=== PATIENT | female | born 1960 | race Caucasian/White ===

== ENCOUNTER 2016-07-29 16:25 | Emergency (ER) | payer BC, OTHER ==
[~2016-07-29] VITALS: Ht 165.1 cm; Wt 112.6 kg
[2016-07-29 16:37] VITALS: TEMP 36.8; Ht 165.1 cm; Wt 112.6 kg
[2016-07-29] MEDS ORDERED: DEXAMETHASONE SOD INJ 10 MG/ML VIAL IV STA (16:55)
[2016-07-29] MEDS ORDERED: DiphenhydrAMINE HCL 50 MG/ML VIAL IV STA (16:55)
[2016-07-29] MEDS ORDERED: FAMOTIDINE 20MG/102 ML D5W IV STA (16:55)
[2016-07-29] MEDS ORDERED: IBUP-103 PO (17:30)
[2016-07-29] MEDS ORDERED: BUPR-83 PO (17:30)
--- NOTE | 2016-07-29 18:02 | EMERGENCY ROOM VISIT NOTE ---
History Report prepared by Herb: Alba Dhillon Under the Supervision of: Dr. Valentín Fisher M.D. First contact with patient: 16:46 Chief Complaint: ALLERGIC REACTION Stated Complaint: SWELLING ALL OVER AND ITCHY FROM LATEX CONTACT- History of Present Illness The patient is a 56 year old female who presents to the Emergency Room with complaints of a constant allergic reaction beginning 4 days ago. The patient states that she has a history of a latex allergy and in the past has had itchiness across her hands after wearing latex gloves. 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 Since wearing the gloves she has had swelling of the upper and lower extremities and itchiness. She denies any fever, chills, bowel changes, and shortness of breath. The patient notes that she took Benadryl and an over the counter medication that she does not remember the name of without relief of her symptoms. Source of History: patient Onset: 4 days ago Position: other (allergic reaction) Quality: other (itchiness) Timing: constant Associated Symptoms: No SOB, No chills, No fevers Note: Pt complains of upper and lower extremity swelling, hives, and itchiness. She denies any bowel changes. Review of Systems See HPI for pertinent positives & negatives. A total of 10 systems reviewed and were otherwise negative. Past Medical & Surgical Medical Problems: (1) No known health problems Family History Cancer Social History Smoking Status: Current Every Day Smoker Marital Status: single Occupation Status: employed Current/Historical Medications Scheduled Bupropion (Wellbutrin), 100 MG PO QAM Methylprednisolone (Medrol Dosepak), 1 PKT PO UD Scheduled PRN Ibuprofen Tab (Advil), 200-600 MG PO Q4H PRN for Pain Allergies Coded Allergies: Latex (Verified Allergy, Intermediate, RASH, 07/29/16) Physical Exam Vital Signs Date Time Temp Pulse Resp B/P Pulse Ox O2 Delivery O2 Flow Rate FiO2 07/29/16 19:13 75 18 152/77 95 Room Air 07/29/16 18:27 80 16 117/92 96 Room Air 07/29/16 17:20 77 24 171/99 97 Room Air 07/29/16 17:14 79 07/29/16 16:42 98 Room Air 07/29/16 16:37 36.8 89 24 199/97 96 Room Air Physical Exam GENERAL: Patient is well appearing and in no acute distress. HEENT: No acute trauma, normocephalic atraumatic, mucous membranes moist, no nasal congestion, no scleral icterus. Mild swelling of lower lip, no tongue swelling. NECK: No stridor, no adenopathy, no meningismus, trachea is midline. LUNGS: No dyspnea. Clear to auscultation and equal bilaterally. No wheeze, no rhonchi. HEART: Regular rate and rhythm. No murmurs, rubs, gallops appreciated. ABDOMEN: Soft, nontender, bowel sounds positive, no masses appreciated, no peritonitis. BACK: No midline tenderness, no CVA tenderness EXTREMITIES: Normal motion all extremities, no cyanosis, no edema. NEUROLOGIC: Alert and oriented, no acute motor or sensory deficits, no focal weakness, cranial nerves grossly intact. SKIN: No rash, no jaundice, no diaphoresis. Erythema of arms and chest Medical Decision & Procedures Medications Administered Medications (Trade) Dose Ordered Sig/Mercedes Route Start Time Stop Time Status Last Admin Dose Admin Diphenhydramine HCl (Benadryl Inj) 50 mg NOW STAT IV 07/29/16 16:55 07/29/16 16:58 DC 07/29/16 17:17 50 MG Dexamethasone Sodium Phosphate (Decadron Inj) 10 mg NOW STAT IV 07/29/16 16:55 07/29/16 16:58 DC 07/29/16 17:05 10 MG Famotidine (Pepcid 20mg/100 ml) 20 mg ONE STAT IV 07/29/16 16:55 07/29/16 16:58 DC 07/29/16 17:05 20 MG ED Course 1645: The patient was evaluated in room A11. A complete history and physical exam was performed. 1654: Famotidine 20mg IV, Decadron Inj 10mg IV, Benadryl Inj 50mg IV. 1800: I reevaluated the patient. She is feeling much better and is drinking a Mountain Dew. She is not tired or somnolent in any way. 1847: Reevaluated the patient. Discussed results and discharge instructions: She verbalized understanding and agreement. The patient is ready for discharge. Medical Decision Differential: Allergic Reaction, Urticaria, Anaphylaxis, Arroyo-Joseph Syndrome, Toxic Epidermal Necrolysis, Erythema Multiforme, Cellulitis, amongst other etiologies entertained. 56 yr old female arrives with complaint of allergic reaction. Exposure to latex a few days ago and since with gradually worsening allergic reaction. She has allergic rash along with mild swelling of lower lip. Symptoms vastly improved with dec/pep/benadryl/nss. Consistent with allergic reaction. Feeling well. Several hours post treatment awake, alert, oriented and in no distress breathing comfortably. She was given benadryl initially, though with how awake she is I feel she is allowed to drive home with understanding benadryl can cause somnolence. RTED if worsening or other concerns. Consults Time Called: 1718 Consulting Physician: Dr. Villanueva Returned Call: 1720 Discussed the patient's case. Additional Consults: Time Called: 1723 Consulted Physician: Dr. Silva Returned Call: 1739 Additional Comments: Discussed the patient's case with Dr. Silva. The patient will be evaluated for further treatment and disposition. Impression Primary Impression: Allergic reaction Additional Impression: Latex allergy Scribe Attestation The scribe's documentation has been prepared under my direction and personally reviewed by me in its entirety. I confirm that the note above accurately reflects all work, treatment, procedures, and medical decision making performed by me. Departure Information Dispostion Home / Self-Care Prescriptions Methylprednisolone (MEDROL DOSEPAK) 4 Mg Demetrio 1 PKT PO UD for 6 Days, #1 PKT Prov: John Alonzo MD 07/29/16 Referrals Anil Bowen M.D. (PCP) Forms HOME CARE DOCUMENTATION FORM, IMPORTANT VISIT INFORMATION Patient Instructions My [facility] Additional Instructions - Use caution with driving as Benadryl may cause somnolense - Use Medrol dose pack as instructed - If symptoms worsen and you begin to become short of breath, have difficulty breathing, or any other concerning symptoms please return to the hospital or be seen by a doctor Problem Qualifiers Primary Impression: Allergic reaction Encounter type: initial encounter Qualified Codes: T78.40XA - Allergy, unspecified, initial encounter
[2016-07-29] MEDS ORDERED: METHYLPREDNISOLONE 4MG TAB, 6 DAY TAPER PO SCH (18:45)
[2016-07-29] MEDS ORDERED: METH4PAK PO (18:48)
--- NOTE | 2016-07-29 18:49 | EMERGENCY ROOM VISIT NOTE ---
History First contact with patient: 16:46 Chief Complaint: ALLERGIC REACTION Stated Complaint: SWELLING ALL OVER AND ITCHY FROM LATEX CONTACT- History of Present Illness The patient is a 56 year old female who presents to the Emergency Room with complaints of pruritis and swelling gradually worsening since the weekend. 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 She did try taking Benadryl yesterday but her swelling and itching have continuously worsened. She has had worsening itching that has become constant interfering with sleep. She has also noticed worsening swelling in her arms, legs, and neck. She denies any shortness of breath, wheezing, lightheadedness, or rash. Review of Systems See HPI for pertinent positives and negatives. A total of ten systems were reviewed and were otherwise negative. Past Medical/Surgical History Medical Problems: (1) No known health problems Family History Cancer Social History Smoking Status: Current Every Day Smoker Marital Status: single Occupation Status: employed Current/Historical Medications Scheduled Bupropion (Wellbutrin), 100 MG PO QAM Methylprednisolone (Medrol Dosepak), 1 PKT PO UD Scheduled PRN Ibuprofen Tab (Advil), 200-600 MG PO Q4H PRN for Pain Allergies Coded Allergies: Latex (Verified Allergy, Intermediate, RASH, 07/29/16) Physical Exam Vital Signs Date Time Temp Pulse Resp B/P Pulse Ox O2 Delivery O2 Flow Rate FiO2 07/29/16 18:27 80 16 117/92 96 Room Air 07/29/16 17:20 77 24 171/99 97 Room Air 07/29/16 17:14 79 07/29/16 16:42 98 Room Air 07/29/16 16:37 36.8 89 24 199/97 96 Room Air Physical Exam GENERAL: Awake, alert, mild distress HENT: Normocephalic, atraumatic. Oropharynx unremarkable. EYES: Normal conjunctiva. Sclera non-icteric. NECK: Supple. Trachea Midline RESPIRATORY: Clear to auscultation. Good inspiratory effort. No wheezing, rales , or rhonchi. CARDIAC: Regular rate, normal rhythm. Extremities warm and well perfused. Pulses equal. ABDOMEN: Soft, non-distended. No tenderness to palpation. RECTAL: Deferred. MUSCULOSKELETAL: Chest examination reveals no tenderness. The back is symmetrical on inspection without obvious abnormality. No joint edema. LOWER EXTREMITIES: Calves appear swollen, equal size bilaterally, nontender to palpation, nonpitting NEURO: Normal sensorium. No sensory or motor deficits noted. SKIN: No rash or jaundice noted. Medical Decision & Procedures Medications Administered Medications (Trade) Dose Ordered Sig/Mercedes Route Start Time Stop Time Status Last Admin Dose Admin Diphenhydramine HCl (Benadryl Inj) 50 mg NOW STAT IV 07/29/16 16:55 07/29/16 16:58 DC 07/29/16 17:17 50 MG Dexamethasone Sodium Phosphate (Decadron Inj) 10 mg NOW STAT IV 07/29/16 16:55 07/29/16 16:58 DC 07/29/16 17:05 10 MG Famotidine (Pepcid 20mg/100 ml) 20 mg ONE STAT IV 07/29/16 16:55 07/29/16 16:58 DC 07/29/16 17:05 20 MG Medical Decision Allergic Reaction to Latex - Benadryl - Decadron - Pepcid Impression Primary Impression: Allergic reaction Departure Information Dispostion Home / Self-Care Condition GOOD Prescriptions Methylprednisolone (MEDROL DOSEPAK) 4 Mg Demetrio 1 PKT PO UD for 6 Days, #1 PKT Prov: John Alonzo MD 07/29/16 Referrals Anil Bowen M.D. (PCP) Patient Instructions My [facility] Problem Qualifiers Primary Impression: Allergic reaction Encounter type: initial encounter Qualified Codes: T78.40XA - Allergy, unspecified, initial encounter
[2016-07-29 19:13] VITALS: BP 152/77; PULSE 75; O2SAT 95
== END 2016-07-29 19:18 | disposition home or self-care (01) ==
LOC: C.EDB 16:27 → C.EDA 19:18
DX: T78.40XA Allergy, unspecified, initial encounter (principal); X58.XXXA Exposure to other specified factors, initial encounter; Z91.040 Latex allergy status; F17.200 Nicotine dependence, unspecified, uncomplicated

== ENCOUNTER 2022-07-22 11:24 | Inpatient (IN) ==
--- NOTE | 2022-07-22 12:02 | XRay Report ---
SINGLE VIEW CHEST CLINICAL HISTORY: Atypical chest pain. FINDINGS: An AP, portable, upright chest radiograph is compared to study dated 07/16/2022. Correlation is made with abdominal CT dated 07/18/2021 The cardiomediastinal silhouette is unremarkable. There is no lobar consolidation or pleural effusion. Interstitial thickening and mild nodularity is again see n in the lower lobes. This likely evidence of mild pneumonitis which could be chronic. No pleural eff usion or pneumothorax is seen. The bony thorax is grossly intact. IMPRESSION: Interstitial thickening and mild nodularity in the lower lobes is similar to recent prior studies and there is also seen on a 07/18/[address] This likely represents a mild pneumoniti s which may be chronic. Nonemergent pulmonology follow-up is recommended ACT 112: Negative or not required by law. Electronically signed by: Kenny Chew M.D. 07/22/2022 12:01 PM
[2022-07-22 12:17] LABS: Basophils # (auto) 0.03 K/uL (0-0.2); Basophils % (auto) 0.3 %; Eosinophils # (auto) 0.08 K/uL (0-0.50); Eosinophils % (auto) 0.8 %; Hematocrit (blood only) 48.5 % (37.0-47.0); Hemoglobin 15.7 g/dl (12.0-16.0); Immature Granulocytes # (auto) 0.03 K/uL (0.01-0.20); Immature Granulocytes % (auto) 0.3 %; Lymphocytes % (auto) 23.1 %; Mean Corpuscular Hemoglobin 28.9 pg (25.0-34.0); Mean Corpuscular Hgb Conc 32.4 g/dL (32.0-36.0); Mean Corpuscular Volume 89.2 fL (80.0-100.0); Mean Platelet Volume 12.2 fL (9.4-12.4); Monocytes # (auto) 0.55 K/uL (0.11-0.59); Monocytes % (auto) 5.5 %; Neutrophils # (auto) 6.95 K/uL (1.40-6.50); Platelet Count 225 K/uL (130-400); RDW Standard Deviation 45.3 fL (36.4-46.3); Red Blood Count 5.44 M/uL (4.20-5.40); White Blood Count 9.94 K/ul (4.8-10.8)
[2022-07-22 12:34] LABS: Albumin Globulin Ratio 1.2 (0.9-2); BUN Creatinine Ratio 9.3 (10-20); Bilirubin,Total 0.5 mg/dl (0.2-1.0); Est GFR (African American) 99.7 ml/min; Globulin 3.4 gm/dl (2.5-4.0); Potassium 3.5 mmol/L (3.5-5.1); Total Protein 7.4 gm/dl (6.0-8.3)
[2022-07-22 12:39] LABS: Partial Thromboplastin Time 29.1 Seconds (21.0-31.0); Prothrombin Time 11.4 Seconds (9.0-12.0)
[2022-07-22 12:58] LABS: Troponin I High Sensitivity 19.5 pg/ml (0-14)
--- NOTE | 2022-07-22 15:04 | Emergency Department Note ---
Impression & Plan Dyspnea, Tobacco abuse, COPD exacerbation, Hypoxia ED Provider Note ED Provider Note NAME: PAPITO REECE AGE:62 SEX: Female : 1960 ARRIVES VIA: Private vehicle INFORMANT: Patient ED PROVIDER(s): Vickie Padilla DO CHIEF COMPLAINT: Shortness of breath, sent from PCP HPI: This is a 62-year-old female who presents emergency department due to difficulty breathing that began on Tuesday. Patient denies any known sick contacts. Patient states she began noticing difficulty breathing particular worse with exertion or lying flat. She denies any coming chest pain or pressure. Patient denies noting any change in her cough or sputum production, no hemoptysis. Patient states she does not use any MDIs or nebulizer treatments at home and is still smoking. She states she was previously told she had mild COPD. She denies any cardiac history or recent travel. Denies any coming leg swelling. She states no recent fevers, chills, sore throat, or nasal congestion. Patient was in her PCPs office today as a follow-up visit from another ER visit last week and was found in the office to be hypoxic and was referred to the ER for additional evaluation. PAST MEDICAL HISTORY:See Below PAST SURGICAL HISTORY:See Below FAMILY HISTORY:See Below SOCIAL HISTORY:See Below HOME MEDICATIONS:See Below ALLERGIES:See Below VITALS:See Below PHYSICAL EXAMINATION: GENERAL: alert, well appearing, well nourished, mild distress, non-toxic EYE EXAM: normal conjunctiva, PERRL and EOM's grossly intact OROPHARYNX: no exudate, no erythema, lips, buccal mucosa, and tongue normal and mucous membranes are moist NECK: supple, no nuchal rigidity, no adenopathy, non-tender LUNGS: Decreased bilateral to auscultation. Normal chest wall mechanics, no r/r, no retractions, scattered expiratory wheeze HEART: no murmurs, S1 normal and S2 normal ABDOMEN: abdomen soft, non-tender, normo-active bowel sounds, no masses, no rebound or guarding. BACK: Back is symmetrical on inspection and there is no deformity, no midline tenderness, no CVA tenderness. SKIN: no rashes, petechiae, orbruising UPPER EXTREMITIES: upper extremities are grossly normal. FROM, nml pulses b/l. LOWER EXTREMITIES: No pitting edema. FROM, nml pulses b/l. NEURO EXAM: Normal sensorium, cranial nerves II-XII grossly intact, normal spee ch, no facial droop,nogross weakness of arms, no gross weakness of legs. Gross sensation intact. No ataxia. Vital Signs: reviewed and remarkable Differential Diagnosis: Differential diagnoses includes but is not limited to pneumonia, bronchitis, COPD/Asthma exacerbation, pneumothorax, pulmonary embolism, congestive heart failure, acute coronary syndrome MEDICAL DECISION MAKING: This is a 62-year-old female with a history of COPD who presents to the emergency room after being seen by her PCP in follow-up for another visit and due to concern for increased trouble breathing and hypoxia noted in the office she was referred to the emergency department. Patient initially seen in the triage waiting room area as she presented on day of high volume and acuity. Labs drawn and sent, IV established, EKG and chest x-ray performed and interpreted by me. Once placed in a regular patient room patient was connected to telemetry for monitoring. Patient given DuoNeb treatments with minimal improvement. Patient continued to have intermittent episodes of hypoxia and was placed on oxygen via nasal cannula. While chest x-ray did not show any focal infiltrate, due to her hypoxia and prior history she was sent for CT imaging additionally. This was reassuring, no PE was noted. Case discussed with hospitalist for additional evaluation and management. Patient was given Solu- Medrol and started on doxycycline while in the emergency room. Consultation(s): 1630: [facility] ER Treatment Provided: See below Diagnostics Interpreted By Me: -ECG: Normal sinus at 74, normal axis, normal intervals, no acute ST/T wave changes -Cardiac Monitoring: An order was placed for continuous cardiac monitoring. The monitor shows a rate of 70 with normal sinus rhythm. -Laboratory studies: As stated above and show below. -Imaging studies: X-ray Chest: A single view study of the chest was reviewed and was negative for cardiomegaly, focal infiltrate, effusion, pulmonary edema, or wide mediastinum. Triage Nursing Note Reviewed Prior/Outside Records Reviewed Past Med/Surg History Medical History COPD (chronic obstructive pulmonary disease) Depression with anxiety HLD (hyperlipidemia) Hypertension Tobacco abuse Surgical History History of hysteroscopy Hx of colonoscopy Family History Mother Cancer Hypertension Social History (Updated 07/22/22 @ 17:26 by Simi Wing PA-C) Smoking Status: Current every day smoker Tobacco Type: Cigarettes Age Started Using Tobacco: 18; packs per day: 0.5; Cigarettes Per Day: 10; Second Hand Exposure: Yes; Do You Dip or Chew Tobacco: No; Tobacco Cessation Education Requested by Patient: No Hx Alcohol Use: No Hx Substance Use: No Preferred Language: Japanese Communication Ability: Effective Net Ui Developer Required: No Beliefs That Will Affect Care: None Current Living Situation: Alone Other Information That Helps Us Care for You: No Feels Safe at Home: Yes Safety Concerns: Feels Safe At This Time Assistive Devices: None Allergies Allergies Allergy/AdvReac Type Severity Reaction Status Date / Time latex Allergy Intermediate RASH Verified 07/22/22 15:29 Home Meds Home Medications Medication Instructions Recorded Confirmed amlodipine 5 mg tablet 5 mg PO QAM 09/11/20 07/22/22 escitalopram oxalate 10 mg tablet 10 mg PO QA 07/22/22 07/22/22 Results & Data (ED) Vital Signs Vital Signs - 24 hr 07/22/22 11:26 Temperature 36.5 C Temperature Source Temporal Artery Scan Pulse Rate 84 Pulse Rhythm Regular Pulse Strength Normal Respiratory Rate 22 Respiratory Effort / Characteristics Non-Labored Spontaneous Respiratory Depth Normal Respiratory Pattern Regular Blood Pressure 168/84 H Blood Pressure Mean 112 Blood Pressure Position Sitting Pulse Oximetry 92 Oxygen Delivery Method Room Air Sepsis Recent Fever Within 48 Hours No Sepsis New/Unexplained Change in Mental Status No Sepsis Action Taken by Nursing No Action Required Laboratory Data 07/22/22 11:41 07/22/22 11:41 Lab Results 07/22/22 07/22/22 07/22/22 Range/Units 11:41 11:41 11:41 WBC 9.94 (4.8-10.8) K/ul RBC 5.44 H (4.20-5.40) M/uL Hgb 15.7 (12.0-16.0) g/dl Hct 48.5 H (37.0-47.0) % MCV 89.2 (80.0-100.0) fL MCH 28.9 (25.0-34.0) pg MCHC 32.4 (32.0-36.0) g/dL RDW Std Deviation 45.3 (36.4-46.3) fL RDW Coeff of Pavithra 14.0 (11.5-14.5) % Plt Count 225 (130-400) K/uL MPV 12.2 (9.4-12.4) fL Immature Gran % (Auto) 0.3 % Neut % (Auto) 70.0 % Lymph % (Auto) 23.1 % [place] % (Auto) 5.5 % Eos % (Auto) 0.8 % Baso % (Auto) 0.3 % Neut # (Auto) 6.95 H (1.40-6.50) K/uL Lymph # (Auto) 2.30 (1.2-3.4) K/uL [place] # (Auto) 0.55 (0.11-0.59) K/uL Eos # (Auto) 0.08 (0-0.50) K/uL Baso # (Auto) 0.03 (0-0.2) K/uL Immature Gran # (Auto) 0.03 (0.01-0.20) K/uL PT 11.4 (9.0-12.0) Seconds INR 1.0 (0.9-1.1) APTT 29.1 (21.0-31.0) Seconds PTT Ratio 1.0 Sodium 139 (136-145) mmol/L Potassium 3.5 (3.5-5.1) mmol/L Chloride 99 (98-107) mmol/L Carbon Dioxide 34 H (21-32) mmol/L Anion Gap 6 (3-11) BUN 7 (6-23) mg/dl Creatinine 0.75 (0.6-1.2) mg/dl Est Cr Clr Drug Dosing 97.0 ml/min Est GFR ( Amer) 99.7 ml/min Est GFR (Non-Af Amer) 86.0 ml/min BUN/Creatinine Ratio 9.3 L (10-20) Glucose 113 H (70-99(Fasting)) mg/dl Calcium 9.0 (8.6-10.3) mg/dl Total Bilirubin 0.5 (0.2-1.0) mg/dl AST 18 (13-39) U/L ALT 21 (7-52) U/L Alkaline Phosphatase 90 (34-104) U/L Troponin I High Sens 19.5 H (0-14) pg/ml Total Protein 7.4 (6.0-8.3) gm/dl Albumin 4.0 (3.4-5.0) gm/dl Globulin 3.4 (2.5-4.0) gm/dl Albumin/Globulin Ratio 1.2 (0.9-2) Procalcitonin (0-0.5) ng/ml SARS-CoV-2 (PCR) (Negative) Influenza Type A (PCR) (Neg) Influenza Type B (PCR) (Neg) RSV (RT-PCR) (Neg) 07/22/22 07/22/22 07/22/22 Range/Units 11:41 15:21 16:27 WBC (4.8-10.8) K/ul RBC (4.20-5.40) M/uL Hgb (12.0-16.0) g/dl Hct (37.0-47.0) % MCV (80.0-100.0) fL MCH (25.0-34.0) pg MCHC (32.0-36.0) g/dL RDW Std Deviation (36.4-46.3) fL RDW Coeff of Pavithra (11.5-14.5) % Plt Count (130-400) K/uL MPV (9.4-12.4) fL Immature Gran % (Auto) % Neut % (Auto) % Lymph % (Auto) % [place] % (Auto) % Eos % (Auto) % Baso % (Auto) % Neut # (Auto) (1.40-6.50) K/uL Lymph # (Auto) (1.2-3.4) K/uL [place] # (Auto) (0.11-0.59) K/uL Eos # (Auto) (0-0.50) K/uL Baso # (Auto) (0-0.2) K/uL Immature Gran # (Auto) (0.01-0.20) K/uL PT (9.0-12.0) Seconds INR (0.9-1.1) APTT (21.0-31.0) Seconds PTT Ratio Sodium (136-145) mmol/L Potassium (3.5-5.1) mmol/L Chloride (98-107) mmol/L Carbon Dioxide (21-32) mmol/L Anion Gap (3-11) BUN (6-23) mg/dl Creatinine (0.6-1.2) mg/dl Est Cr Clr Drug Dosing ml/min Est GFR ( Amer) ml/min Est GFR (Non-Af Amer) ml/min BUN/Creatinine Ratio (10-20) Glucose (70-99(Fasting)) mg/dl Calcium (8.6-10.3) mg/dl Total Bilirubin (0.2-1.0) mg/dl AST (13-39) U/L ALT (7-52) U/L Alkaline Phosphatase (34-104) U/L Troponin I High Sens 20.2 H (0-14) pg/ml Total Protein (6.0-8.3) gm/dl Albumin (3.4-5.0) gm/dl Globulin (2.5-4.0) gm/dl Albumin/Globulin Ratio (0.9-2) Procalcitonin 0.09 (0-0.5) ng/ml SARS-CoV-2 (PCR) NEGATIVE (Negative) Influenza Type A (PCR) Negative (Neg) Influenza Type B (PCR) Negative (Neg) RSV (RT-PCR) Negative (Neg) Administered Medications Albuterol (Albut/Ipratrop 3mg/0.5mg Neb 3 Ml Vial) 3 ml NEB Q4R JUAN; Protocol Stop: 08/21/22 18:59 Last Admin: 07/23/22 15:21 Dose: 3 ml Documented By: Admin: 07/23/22 10:50 Dose: Not Given Documented By: Admin: 07/23/22 07:46 Dose: Not Given Documented By: Admin: 07/23/22 01:54 Dose: Not Given Documented By: Admin: 07/22/22 23:25 Dose: Not Given Documented By: Admin: 07/22/22 19:16 Dose: 3 ml Documented By: NDC Amlodipine Besylate (Amlodipine Besylate 5 Mg Tab) [facility] Stop: 08/22/22 08:59 Last Admin: 07/23/22 08:40 Dose: 5 mg Documented By: OO Doxycycline Hyclate (Doxycycline Hyclate 100 Mg Cap) 100 mg PO BID [facility] Stop: 07/30/22 05:59 Last Admin: 07/23/22 06:07 Dose: 100 mg Documented By: ESG Enoxaparin Sodium (Enoxaparin Inj 40 Mg/0.4 Ml Syr) 40 mg SQ Q24H JUAN Stop: 08/21/22 21:59 Last Admin: 07/22/22 22:34 Dose: 40 mg Documented By: WILFRIDG Escitalopram Oxalate (Escitalopram Oxalate 10 Mg Tab) 10 mg PO QAM [facility] Stop: 08/22/22 08:59 Last Admin: 07/23/22 08:40 Dose: 10 mg Documented By: OO Formoterol Fumarate (Formoterol 20 Mcg/2 Ml Vial) 20 mcg INH BIDR [facility] Stop: 08/21/22 18:59 Last Admin: 07/23/22 10:50 Dose: 20 mcg Documented By: Admin: 07/23/22 07:46 Dose: Not Given Documented By: Admin: 07/22/22 19:15 Dose: 20 mcg Documented By: [facility] Guaifenesin (Guaifenesin 600 Mg Tabcr) 600 mg PO Q12 [facility] Stop: 08/21/22 20:59 Last Admin: 07/23/22 08:41 Dose: 600 mg Documented By: Admin: 07/22/22 19:44 Dose: 600 mg Documented By: WILFRIDG Piperacillin Sod/Tazobactam (Sod 4.5 gm/ Dextrose) 120 mls @ 30 mls/hr IV Q8H [facility]; Protocol Stop: 07/30/22 01:59 Last Infusion: 07/23/22 13:56 Dose: 0 mls/hr Documented By: Admin: 07/23/22 10:00 Dose: 30 mls/hr Documented By: Infusion: 07/23/22 06:17 Dose: 0 mls/hr Documented By: Admin: 07/23/22 02:41 Dose: 30 mls/hr Documented By: WILFRIDG Methylprednisolone 40 mg/ (Syringe) 0.64 mls @ 1.5 mls/min IV Q8H [facility] Stop: 08/21/22 21:59 Last Admin: 07/23/22 13:57 Dose: 1.5 mls/min Documented By: Admin: 07/23/22 06:07 Dose: 1.5 mls/min Documented By: Admin: 07/22/22 22:35 Dose: 1.5 mls/min Documented By: WILFRIDG Miscellaneous (Remove Nicoderm Patch) 1 each N/A DAILY@0859 [facility] Stop: 08/22/22 08:58 Last Admin: 07/23/22 09:16 Dose: 1 each Documented By: OO Nicotine (Nicotine 21 Mg/24 Hr Tdsy) 21 mg TD QAM [facility] Stop: 08/21/22 18:29 Last Admin: 07/23/22 08:39 Dose: 21 mg Documented By: Admin: 07/22/22 19:39 Dose: 21 mg Documented By: WILFRIDG Saccharomyces Boulardii (Saccharomyces Boulardii 250 Mg Cap) 250 mg PO DAILY [facility] Stop: 08/22/22 08:59 Last Admin: 07/23/22 08:40 Dose: 250 mg Documented By: MAG Sodium Chloride (Sodium Chlor 7% 4 Ml Neb) 4 ml NEB BIDR [facility] Stop: 08/21/22 18:59 Last Admin: 07/23/22 07:46 Dose: Not Given Documented By: Admin: 07/22/22 19:15 Dose: 4 ml Documented By: NDC Umeclidinium Pearsall (Umeclidinium Pearsall 62.5mcg/Blister 7 Puffs/Inhaler) 1 puffs INH DAILY [facility] Stop: 08/22/22 10:59 Last Admin: 07/23/22 11:33 Dose: 1 puffs Documented By: MAG Discontinued Medications Albuterol (Albut/Ipratrop 3mg/0.5mg Neb 3 Ml Vial) 3 ml NEB NOW STA; Protocol Stop: 07/22/22 15:35 Last Admin: 07/22/22 15:40 Dose: 3 ml Documented By: MERLIN Albuterol (Albut/Ipratrop 3mg/0.5mg Neb 3 Ml Vial) 3 ml NEB NOW STA; Protocol Stop: 07/22/22 16:23 Last Admin: 07/22/22 16:27 Dose: 3 ml Documented By: MERLIN Doxycycline Hyclate (Doxycycline Hyclate 100 Mg Cap) 100 mg PO NOW STA Stop: 07/22/22 15:45 Last Admin: 07/22/22 16:04 Dose: 100 mg Documented By: MERLIN Sodium Chloride (Nss 1000ml) 1,000 mls @ 125 mls/hr IV .Q8H JUAN Stop: 08/21/22 16:29 Last Infusion: 07/22/22 22:30 Dose: 0 mls/hr Documented By: Infusion: 07/22/22 19:00 Dose: 0 mls/hr Documented By: Admin: 07/22/22 16:29 Dose: 125 mls/hr Documented By: MERLIN Potassium Chloride/Sodium Chloride (Normal Saline W/20 Meq Kcl) 20 meq in 1,000 mls @ 80 mls/hr IV .[id number] JUAN Stop: 07/23/22 05:51 Last Infusion: 07/23/22 06:17 Dose: 0 mls/hr Documented By: Admin: 07/22/22 17:41 Dose: 80 mls/hr Documented By: ROD Piperacillin Sod/Tazobactam Sod (Zosyn) 4.5 gm in 120 mls @ 240 mls/hr IV NOW ONE; Protocol Stop: 07/22/22 18:14 Last Infusion: 07/22/22 19:27 Dose: 0 mls/hr Documented By: Admin: 07/22/22 17:43 Dose: 240 mls/hr Documented By: ROD Ioversol (Optiray 320 500ml) 110 ml IV ONCE ONE Stop: 07/22/22 15:21 Last Admin: 07/22/22 15:21 Dose: 110 ml Documented By: BENITA Methylprednisolone (Methylprednisolone 125 Mg/2 Ml Vial) 60 mg IV NOW STA Stop: 07/22/22 15:45 Last Admin: 07/22/22 16:04 Dose: 60 mg Documented By: MERLIN Imaging Data Radiologist's Impression: Chest X-Ray 07/22/22 11:31 SINGLE VIEW CHEST CLINICAL HISTORY: Atypical chest pain. FINDINGS: An AP, portable, upright chest radiograph is compared to study dated 07/16/2022. Correlation is made with abdominal CT dated 07/18/2021 The cardiomediastinal silhouette is unremarkable. There is no lobar consolidation or pleural effusion. Interstitial thickening and mild nodularity is again seen in the lower lobes. This likely evidence of mild pneumonitis which could be chronic. No pleural effusion or pneumothorax is seen. The bony thorax is grossly intact. IMPRESSION: Interstitial thickening and mild nodularity in the lower lobes is similar to recent prior studies and there is also seen on a 07/18/[address] This likely represents a mild pneumonitis which may be chronic. Nonemergent pulmonology follow-up is recommended ACT 112: Negative or not required by law. Electronically signed by: Kenny Chew M.D. 07/22/2022 12:01 PM Discharge Plan Visit Data Chief Complaint: Referred by Doctor Stated Complaint: LOW OXYGEN LEVELS ED Provider: Vickie Padilla Discharge Problem: Dyspnea, Tobacco abuse, COPD exacerbation, Hypoxia Patient Disposition: Admitted As Inpatient Discharge Instructions Interventions: ED Discharge Assessment Last Done: 07/22/22 17:23
[2022-07-22] MEDS ORDERED: OPTIRAY 320 500ml IV ONE (15:20)
[2022-07-22] MEDS ORDERED: ALBUT/IPRATROP 3MG/0.5MG NEB 3 ML VIAL NEB STA ×2 (15:34→16:22)
--- NOTE | 2022-07-22 15:40 | CT Scan Report ---
CT ANGIOGRAM OF THE CHEST CLINICAL HISTORY: Dyspnea. COMPARISON STUDY: Chest x-ray dated 07/22/2022. Abdominal CT dated 07/18/2021. TECHNIQUE: Following the IV administration of 110 cc of Optiray 320, CT angiogram of the chest was pe rformed from the upper abdomen to the thoracic inlet utilizing the pulmonary embolus protocol. Images are reviewed in the axial, sagittal, and coronal planes. 3-D MIPS images are created and assessed. I V contrast was administered without complication. A dose lowering technique was utilized adhering to the principles of ALARA. The examination is degraded by motion artifact. CT DOSE: 630.94 mGy.cm FINDINGS: Thyroid: Imaged portions of the thyroid gland are normal in size and attenuation. Thoracic aorta: The thoracic aorta is normal in caliber and demonstrates standard 3-vessel arch anato my. No dissection is seen. Pulmonary vasculature: The pulmonary trunk is normal in caliber. There are no filling defects identif ied in main, lobar, or segmental pulmonary branches to suggest pulmonary embolus. Heart: The heart is mildly enlarged and without pericardial effusion. There are scattered coronary ar amanda calcifications. Lungs and pleural spaces: Evaluation of the lung parenchyma is degraded by motion artifact. There is mild bronchiectasis in the lower lobes, left greater than right. There is mucous plugging/impaction s een on the left. Patchy groundglass consolidation is seen throughout both lungs. Minimal secretions a re seen in the mid trachea and left mainstem bronchus. No pleural effusion is identified. Linear scar ring/atelectasis is present at both lung bases. Foci of air trapping are seen in the lower lobes. Mediastinum: There are mildly enlarged mediastinal lymph nodes. AP window nodes measure up to 17 mm i n short axis. Josefina: There are numerous mildly enlarged hilar lymph nodes which measure up to 11 mm in short axis. Axillae: There is no axillary lymphadenopathy. Upper abdomen: Partially visualized upper abdominal viscera is within normal limits. Skeletal structures: The skeletal structures are osteopenic. Degenerative change is noted in the thor acic spine. No lytic or blastic bony lesions are seen. IMPRESSION: 1. There is no evidence of pulmonary embolus in the main, lobar, or segmental pulmonary arteries. 2. Patchy groundglass consolidation is seen throughout both lungs, likely representing an infectious/ inflammatory pneumonitis. Additionally, there is mild lower lobe bronchiectasis with mucous plugging/ impaction on the left. Similar findings were seen on the 07/18/[address] scan. This may repres ent an acute on chronic or possibly atypical infectious process. Follow-up with pulmonology is recomm ended. 3. Mild cardiomegaly with coronary artery calcification. 4. Mildly enlarged mediastinal and hilar lymph nodes are likely reactive. 5. No pleural effusion is seen. 6. Additional findings as above. ACT 112: Negative or not required by law. Electronically signed by: Kenny Chew M.D. 07/22/2022 3:38 PM
[2022-07-22] MEDS ORDERED: methylPREDNISolone 125 MG/2 ML VIAL IV STA (15:44)
[2022-07-22] MEDS ORDERED: DOXYCYCLINE HYCLATE 100 MG CAP PO STA (15:44)
[2022-07-22 16:15] LABS: Influenza A virus by PCR Negative (Neg); Influenza B virus by PCR Negative (Neg); RSV by PCR Negative (Neg); SARS CoV2 RNA(COVID-19) Ceph NEGATIVE (Negative)
[2022-07-22] MEDS ORDERED: SODIUM CHLORIDE 0.9% 1000ML 1,000 ML IV SCH (16:30)
--- NOTE | 2022-07-22 16:55 | History & Physical Report ---
Date of Service July 22, 2022 Assessment & Plan (1) Acute respiratory failure with hypoxia: (2) Pneumonitis: (3) COPD exacerbation: (4) Hypertension: (5) Tobacco abuse: Plan This is a 62-year-old female with significant past medical history of COPD, HTN, tobacco abuse, depression who presents to ED due to shortness breath and cough x1 week. Acute hypoxic respiratory failure Pneumonitis COPD exacerbation Bronchiectasis per CT Tobacco abuse CT chest:Patchy groundglass consolidation is seen throughout both lungs, likely representing an infectious/inflammatory pneumonitis. Additionally, there is mild lower lobe bronchiectasis with mucous plugging/impaction on the left. Similar findings were seen on the 07/18/[address] scan. This may represent an acute on chronic or possibly atypical infectious process. Follow-up with pulmonology is recommended. Admit to telemetry Titrate oxygen for saturation greater than 90% IV antibiotics with zosyn due to possible aspiration and doxycycline IV solumedrol 40mg q8h pulmonary toilet with nebs, spirometry, flutter valve consult pulm due to concern for mucous plugging, hypoxia and bronchiectasis obtain procalcitonin nicotine patch encourage smoking cessation will place on IVF for 1L due to pt stating poor PO intake last several days, a.m. provider to re eval fluid needs Elevated troponin likely demand in setting of hypoxia and resp illness no CP, ekg w/o ischemic change HTN pt on amlodipine as OP bp elevated in ED, will re eval shortly when pt is calm may need to give IV antihypertensive if BP continues to remain elevated bp in clinic today was 128/66 DVT ppx: SQ Lovenox Full Code PCP: Andrés Dispo: admit to PCU, pt adamant about only staying overnight, encouraged patient to be patient and allow her symptoms to improve with treatment, she said she will think about it. A total of 75 was spent coordinating, documenting, and providing care for this patient excluding time spent in the performance of separately billed services. This included personally viewing all current laboratories and imaging studies, medication reconciliation, outpatient chart review, and discussion with spec ialists. Pt was seen and examined in collaboration with Dr. Miller, please see addendum History of Present Illness Chief Complaint: SOB and cough x 1 week. Primary Care Provider: Anil Bowen MD This is a 62-year-old female with significant past medical history of COPD, HTN, tobacco abuse, depression who presents to ED due to shortness breath and cough x1 week. Of significance patient was seen in ED on 07/16/2022 after sustaining a choking episode whenever she was drinking tea at a restaurant. She was seated at a bonds when she started coughing and choking on TV and had a witnessed syncopal episode at the table. She was only out for a few seconds prior to regaining consciousness. She came to ED for further evaluation and work-up was otherwise unremarkable. The next day on 07/17 she woke up feeling, "awful." She complained of productive cough with white sputum, feeling feverish, fatigued, rundown, short of breath with exertion and at rest and overall poor appetite. She has not had much to eat or drink since that event. She overall feels dehydrated. She was seen and evaluated in PCP office today when she was found to be hypoxic and sent over to ER for further evaluation. She does not have any inhalers at home. She has a known history of COPD but denies any prior history of COPD exacerbation, hospitalization or pneumonia. She denies any current trouble swallowing. She continues to smoke half a pack a day and has smoked for approximately 30 years. In ED patient was hypoxic requiring 3 L of supplemental oxygen. She was also hypertensive. Chest CTA was negative for PE but did reveal patchy groundglass consolidation throughout both lungs likely representing infectious and inflammatory pneumonitis. Additionally there is a mild lower lobe bronchiectasis with mucous plugging/impaction on the left which is similar in finding to the CT done on 07/18/2021. She does not see a heavy duty truck mechanic as outpatient. Allergies Allergy/AdvReac Type Severity Reaction Status Date / Time latex Allergy Intermediate RASH Verified 07/22/22 15:29 Home Medications Medication Instructions Recorded Confirmed Type amlodipine 5 mg tablet 5 mg PO QAM 09/11/20 07/22/22 History escitalopram oxalate 10 mg tablet 10 mg PO QAM 07/22/22 07/22/22 History Past Med/Surg History Medical History COPD (chronic obstructive pulmonary disease) Depression with anxiety HLD (hyperlipidemia) Hypertension Tobacco abuse Surgical History History of hysteroscopy Hx of colonoscopy Family History Mother Cancer Hypertension Social History (Updated 07/22/22 @ 17:26 by Simi Wing PA-C) Smoking Status: Current every day smoker Tobacco Type: Cigarettes Age Started Using Tobacco: 18; packs per day: 0.5; Cigarettes Per Day: 10; Second Hand Exposure: Yes; Do You Dip or Chew Tobacco: No; Tobacco Cessation Education Requested by Patient: No Hx Alcohol Use: No Hx Substance Use: No Preferred Language: Czech Communication Ability: Effective Final Inspector And Tester Required: No Beliefs That Will Affect Care: None Current Living Situation: Alone Other Information That Helps Us Care for You: No Feels Safe at Home: Yes Safety Concerns: Feels Safe At This Time Assistive Devices: None Review of Systems Review of Systems: All systems reviewed & are unremarkable except as noted in HPI & below Physical Exam Physical Exam: Constitutional: WD/WN, vitals as above, NAD, sitting up in bed, pleasant, conversing easily Head: Normocephalic, Atraumatic Eyes: PERRL, conjunctivae normal, anicteric sclerae ENMT: external ear and nose normal, oropharynx normal Neck: trachea midline, no thyromegaly normal visual inspection Respiratory: normal respiratory effort, b/l course breath sounds throughout with expiratory wheeze throughout, no rales or rhonchi. Normal insp/exp effort, no accessory muscle use Cardiovascular: RRR, no murmur, no edema Vessels: no JVD or carotid bruit Chest: normal inspection of chest Abdomen: normal bowel sounds, soft, nontender, no hepatosplenomegaly Musculoskeletal: no cyanosis or clubbing, extremities motor strength 5/5 Skin: no rashes, warm and dry normal turgor Neurologic: PERRL, EOMI, accommodation nl, no face palsy, no dysarthria CN's II-XI intact bilaterally and moves all extremities Psychiatric: A+Ox3, euthymic affect Lymphatic: no cervical or axillary lymphadenopathy : deferred Results & Data Results & Data Vital Signs (Past 12 Hours) Vital Signs Temp Pulse Pulse Resp BP BP Pulse Ox 07/22/22 16:00 68 22 164/96 H 91 07/22/22 15:28 67 07/22/22 15:32 64 19 165/98 H 98 07/22/22 15:29 88 L 07/22/22 15:20 93 07/22/22 15:20 69 16 165/104 H 93 07/22/22 11:26 36.5 C 84 22 168/84 H 92 O2 Del Method O2 Flow Rate 07/22/22 16:00 Nasal Cannula 3 07/22/22 15:28 07/22/22 15:32 Nasal Cannula 3 07/22/22 15:29 Nasal Cannula 07/22/22 15:20 Room Air 07/22/22 15:20 Room Air 07/22/22 11:26 Room Air Diagnostic Findings Chest X-Ray 07/22/22 11:31 SINGLE VIEW CHEST CLINICAL HISTORY: Atypical chest pain. FINDINGS: An AP, portable, upright chest radiograph is compared to study dated 07/16/2022. Correlation is made with abdominal CT dated 07/18/2021 The cardiomediastinal silhouette is unremarkable. There is no lobar consolidation or pleural effusion. Interstitial thickening and mild nodularity is again seen in the lower lobes. This likely evidence of mild pneumonitis which could be chronic. No pleural effusion or pneumothorax is seen. The bony thorax is grossly intact. IMPRESSION: Interstitial thickening and mild nodularity in the lower lobes is similar to recent prior studies and there is also seen on a 07/18/[address] This likely represents a mild pneumonitis which may be chronic. Nonemergent pulmonology follow-up is recommended ACT 112: Negative or not required by law. Electronically signed by: Kenny Chew M.D. 07/22/2022 12:01 PM Chest CTA 07/22/22 15:07 CT ANGIOGRAM OF THE CHEST CLINICAL HISTORY: Dyspnea. COMPARISON STUDY: Chest x-ray dated 07/22/2022. Abdominal CT dated 07/18/2021. TECHNIQUE: Following the IV administration of 110 cc of Optiray 320, CT angiogram of the chest was performed from the upper abdomen to the thoracic inlet utilizing the pulmonary embolus protocol. Images are reviewed in the axial, sagittal, and coronal planes. 3-D MIPS images are created and assessed. IV contrast was administered without complication. A dose lowering technique was utilized adhering to the principles of ALARA. The examination is degraded by motion artifact. CT DOSE: 630.94 mGy.cm FINDINGS: Thyroid: Imaged portions of the thyroid gland are normal in size and attenuation. Thoracic aorta: The thoracic aorta is normal in caliber and demonstrates standard 3-vessel arch anatomy. No dissection is seen. Pulmonary vasculature: The pulmonary trunk is normal in caliber. There are no filling defects identified in main, lobar, or segmental pulmonary branches to suggest pulmonary embolus. Heart: The heart is mildly enlarged and without pericardial effusion. There are scattered coronary artery calcifications. Lungs and pleural spaces: Evaluation of the lung parenchyma is degraded by motion artifact. There is mild bronchiectasis in the lower lobes, left greater than right. There is mucous plugging/impaction seen on the left. Patchy groundglass consolidation is seen throughout both lungs. Minimal secretions are seen in the mid trachea and left mainstem bronchus. No pleural effusion is identified. Linear scarring/atelectasis is present at both lung bases. Foci of air trapping are seen in the lower lobes. Mediastinum: There are mildly enlarged mediastinal lymph nodes. AP window nodes measure up to 17 mm in short axis. Josefina: There are numerous mildly enlarged hilar lymph nodes which measure up to 11 mm in short axis. Axillae: There is no axillary lymphadenopathy. Upper abdomen: Partially visualized upper abdominal viscera is within normal limits. Skeletal structures: The skeletal structures are osteopenic. Degenerative change is noted in the thoracic spine. No lytic or blastic bony lesions are seen. IMPRESSION: 1. There is no evidence of pulmonary embolus in the main, lobar, or segmental pulmonary arteries. 2. Patchy groundglass consolidation is seen throughout both lungs, likely representing an infectious/inflammatory pneumonitis. Additionally, there is mild lower lobe bronchiectasis with mucous plugging/impaction on the left. Similar findings were seen on the 07/18/[address] scan. This may represent an acute on chronic or possibly atypical infectious process. Follow-up with pulmonology is recommended. 3. Mild cardiomegaly with coronary artery calcification. 4. Mildly enlarged mediastinal and hilar lymph nodes are likely reactive. 5. No pleural effusion is seen. 6. Additional findings as above. ACT 112: Negative or not required by law. Electronically signed by: Kenny Chew M.D. 07/22/2022 3:38 PM Medications Administered Medication List Sodium Chloride (Nss 1000ml) 1,000 mls @ 125 mls/hr IV .Q8H JUAN Stop: 08/21/22 16:29 Last Admin: 07/22/22 16:29 Dose: 125 mls/hr Documented By: MERLIN Discontinued Medications Albuterol (Albut/Ipratrop 3mg/0.5mg Neb 3 Ml Vial) 3 ml NEB NOW STA; Protocol Stop: 07/22/22 15:35 Last Admin: 07/22/22 15:40 Dose: 3 ml Documented By: MERLIN Albuterol (Albut/Ipratrop 3mg/0.5mg Neb 3 Ml Vial) 3 ml NEB NOW STA; Protocol Stop: 07/22/22 16:23 Last Admin: 07/22/22 16:27 Dose: 3 ml Documented By: MERLIN Doxycycline Hyclate (Doxycycline Hyclate 100 Mg Cap) 100 mg PO NOW STA Stop: 07/22/22 15:45 Last Admin: 07/22/22 16:04 Dose: 100 mg Documented By: MERLIN Ioversol (Optiray 320 500ml) 110 ml IV ONCE ONE Stop: 07/22/22 15:21 Last Admin: 07/22/22 15:21 Dose: 110 ml Documented By: BENITA Methylprednisolone (Methylprednisolone 125 Mg/2 Ml Vial) 60 mg IV NOW STA Stop: 07/22/22 15:45 Last Admin: 07/22/22 16:04 Dose: 60 mg Documented By: MERLIN ECG Rate (beats per minute): 74 Rhythm: normal sinus COVID-19 Results Results COVID-19 Adm Lab Results: RBC 5.44 M/uL (4.20-5.40) H 07/22/22 WBC 9.94 K/ul (4.8-10.8) 07/22/22 Hgb 15.7 g/dl (12.0-16.0) 07/22/22 Hct 48.5 % (37.0-47.0) H 07/22/22 Plt Count 225 K/uL (130-400) 07/22/22 Neutrophils (%) (Auto) 70.0 % 07/22/22 Lymphocytes (%) (Auto) 23.1 % 07/22/22 Monocytes # (Auto) 0.55 K/uL (0.11-0.59) 07/22/22 Eosinophils # (Auto) 0.08 K/uL (0-0.50) 07/22/22 Immature Granulocyte % (Auto) 0.3 % 07/22/22 Neutrophils # (Auto) 6.95 K/uL (1.40-6.50) H 07/22/22 Lymphocytes # (Auto) 2.30 K/uL (1.2-3.4) 07/22/22 Monocytes # (Auto) 0.55 K/uL (0.11-0.59) 07/22/22 Eosinophils # (Auto) 0.08 K/uL (0-0.50) 07/22/22 Basophils # (Auto) 0.03 K/uL (0-0.2) 07/22/22 Immature Granulocyte # (Auto) 0.03 K/uL (0.01-0.20) 3 Na 139 mmol/L (136-145) 07/22/22 K 3.5 mmol/L (3.5-5.1) 07/22/22 Cl 99 mmol/L (98-107) 07/22/22 CO2 34 mmol/L (21-32) H 07/22/22 Anion Gap 6 (3-11) 07/22/22 BUN 7 mg/dl (6-23) 07/22/22 Creatinine 0.75 mg/dl (0.6-1.2) 07/22/22 BUN/Creatinine Ratio 9.3 (10-20) L 07/22/22 Glucose Level 113 mg/dl (70-99(Fasting)) H 07/22/22 Ca 9.0 mg/dl (8.6-10.3) 07/22/22 Total Bilirubin 0.5 mg/dl (0.2-1.0) 07/22/22 AST/SGOT 18 U/L (13-39) 07/22/22 ALT/SGPT 21 U/L (7-52) 07/22/22 Alkaline Phosphatase 90 U/L (34-104) 07/22/22 Total Protein 7.4 gm/dl (6.0-8.3) 07/22/22 Albumin 4.0 gm/dl (3.4-5.0) 07/22/22 Globulin 3.4 gm/dl (2.5-4.0) 07/22/22 Albumin/Globulin Ratio 1.2 (0.9-2) 07/22/22 Procalcitonin 0.09 ng/ml (0-0.5) 07/22/22 PTT 29.1 Seconds (21.0-31.0) 07/22/22 INR 1.0 (0.9-1.1) 07/22/22 COVID-19 PCR NEGATIVE (Negative) 07/22/22 Influenza Virus Type A (PCR) Negative (Neg) 07/22/22 Influenza Virus Type B (PCR) Negative (Neg) 07/22/22 Chest X-Ray 07/22/22 Code Status & VTE Plan Code Status FULL CODE VTE Prophylaxis Plan VTE Prophylaxis will be ordered: Yes Supervising Physician Co-Signing Physician Notes Pt seen and examined by myself, Naomi Miller MD on the day of service. Care was coordinated with Simi Wing PA-C. Please refer to her note for additional information. 62yo female who gives the Hx of recent aspiration event at a restaurant in the setting of known COPD, who presented with progressive cough and SOB for the past week. New oxygen requirement but resting comfortably. Scattered wheezes and sounds rhonchorous. States she does not use inhalers at home for her COPD. CT chest suggestive of infectious/inflammatory pneumonitis with bronchiectasis and mucous plugging. Zosyn empirically with pulmonary toilet, inhalers, nebulizer treatments, IV steroids and pulmonology consult. Otherwise as above.
[2022-07-22] MEDS ORDERED: ALUMINUM/MAGNESIUM SUSP 30 ML UDC PO PRN (17:22)
[2022-07-22] MEDS ORDERED: ONDANSETRON INJ 2 MG/ML 2 ML VIAL IV PRN (17:22)
[2022-07-22] MEDS ORDERED: ACETAMINOPHEN 325 MG TAB PO PRN (17:22)
[2022-07-22] MEDS ORDERED: MAGNESIUM HYDROXIDE SUSP 30 ML UDC PO PRN (17:22)
[2022-07-22] MEDS ORDERED: POLYETHYLENE (MIRALAX) 17 GM PACK PO PRN (17:22)
[2022-07-22] MEDS ORDERED: NSS + 20MEQ KCL 20 MEQ/1,000 ML BAG IV SCH (17:22)
[2022-07-22] MEDS ORDERED: PIPERACILLIN/TAZOBACTAM 4.5 GM/120 ML BAG IV ONE (17:45)
--- NOTE | 2022-07-22 17:54 | Pulmonary Consultation ---
Date of Consultation July 22, 2022 Assessment & Plan (1) Acute respiratory failure with hypoxia: (2) Tobacco abuse: (3) COPD (chronic obstructive pulmonary disease): (4) Multifocal pneumonia: (5) Bronchiectasis: Plan CT chest 07/22/2022 personally reviewed: Patchy groundglass opacities appreciated bilaterally upper and lower lobes Diffuse mosaicism appreciated Bronchiectasis of the left lower lobe Minimal mediastinal lymphadenopathy para-aortic --Acute hypoxic respiratory failure Secondary to multifocal pneumonia COVID-19 PCR, influenza A/B, RSV negative Absolute eosinophil count 80 on 07/22/2022, have been as high as 190 on 07/18/2021 --Bronchiectasis Left lower lobe Etiology is not clear, could be idiopathic versus recurrent infection I will order immunoglobulin levels -- COPD Not on any inhalers at home Would recommend Trelegy or BrezTri to be used on discharge --Active smoker Greater than [id number] smoking history Importance of quitting explained to the patient in depth --Hypersomnia Recommend outpatient polysomnography Plan: Add hypertonic saline, Mucinex and Brovana Follow-up immunoglobulin levels to be done tomorrow along with RAST panel and IgE Follow-up procalcitonin Continue with antibiotic Please note the above document was generated using voice recognition software. It may contain grammatical, syntax or spelling errors.Any formal questions or concerns about the content, text or information contained within the body of this dictation should be directly addressed to the provider for clarification. History of Present Illness Attending Physician: Naomi Miller MD History of Present Illness 62-year-old female present to the hospital with complaints of worsening shortness of breath Past medical history: Hypertension, depression Pulmonary consulted for COPD Patient says that her shortness of breath has been getting worse since last 3 to 4 days. She has been coughing but she is having difficulty bringing up the phlegm. Denies any hemoptysis. She does not have any inhalers at home. Never followed up with a migratory game bird biologist. Denies any fever. Patient does have subjective chills No dysuria, diarrhea No headache, no blurry vision No night sweats, no unintentional weight loss No history of recurrent infections as a child. Patient does snore at night. No witnessed apneic episodes. Does complain of daytime somnolence Social history: Approximately [id number] smoking history, currently smoking half a pack a day, social alcohol, denies any illicit drug use. Pets: No birds or poultry nearby. No pets at home Allergies: Seasonal Asthma: No personal or family history of asthma Lung cancer: History of lung cancer in paternal uncle was a smoker Allergies Allergy/AdvReac Type Severity Reaction Status Date / Time latex Allergy Intermediate RASH Verified 07/22/22 15:29 Home Medications Medication Instructions Recorded Confirmed Type amlodipine 5 mg tablet 5 mg PO QAM 09/11/20 07/22/22 History escitalopram oxalate 10 mg tablet 10 mg PO QAM 07/22/22 07/22/22 History Patient History Medical History COPD (chronic obstructive pulmonary disease) Depression with anxiety HLD (hyperlipidemia) Hypertension Tobacco abuse Surgical History History of hysteroscopy Hx of colonoscopy Family History Mother Cancer Hypertension Social History (Updated 07/22/22 @ 17:26 by Simi Wing PA-C) Smoking Status: Current every day smoker Tobacco Type: Cigarettes Age Started Using Tobacco: 18; packs per day: 0.5; Cigarettes Per Day: 10; Second Hand Exposure: Yes; Do You Dip or Chew Tobacco: No; Tobacco Cessation Education Requested by Patient: No Hx Alcohol Use: No Hx Substance Use: No Preferred Language: Malian Communication Ability: Effective Auto Wash Buffer Required: No Beliefs That Will Affect Care: None Current Living Situation: Alone Other Information That Helps Us Care for You: No Feels Safe at Home: Yes Safety Concerns: Feels Safe At This Time Assistive Devices: None Review of Systems Review of Systems: All systems reviewed & are unremarkable except as noted in HPI & below Physical Exam Physical Exam: Constitutional: No acute distress HEENT: EOMI, PERRLA Respiratory system: Decreased air entry bilaterally, no rhonchi, positive expiratory wheeze bilaterally, mild crackles bilateral lower lobes more on the left side CVS: S1-S2 positive, no murmurs or gallops Abdomen: Soft, nontender, nondistended, positive bowel sounds x4, obese Extremities: +2 pulses bilaterally radialis/ dorsalis pedis, no cyanosis, no edema Neuro: Awake alert oriented x3 Psych: Normal mood and affect G/U: No Mercedes Skin: no rashes, warm and dry Lymphatic: no cervical or axillary lymphadenopathy Results & Data Results & Data Vital Signs (Past 12 Hours) Vital Signs Temp Pulse Pulse Resp BP BP Pulse Ox 07/22/22 17:12 71 23 183/102 H 93 07/22/22 17:26 07/22/22 16:00 68 22 164/96 H 91 07/22/22 15:28 67 07/22/22 15:32 64 19 165/98 H 98 07/22/22 15:29 88 L 07/22/22 15:20 93 07/22/22 15:20 69 16 165/104 H 93 07/22/22 11:26 36.5 C 84 22 168/84 H 92 Pulse Ox O2 Del Method O2 Del Method O2 Flow Rate O2 Flow Rate 07/22/22 17:12 Nasal Cannula 3 07/22/22 17:26 93 Nasal Cannula 3 07/22/22 16:00 Nasal Cannula 3 07/22/22 15:28 07/22/22 15:32 Nasal Cannula 3 07/22/22 15:29 Nasal Cannula 07/22/22 15:20 Room Air 07/22/22 15:20 Room Air 07/22/22 11:26 Room Air Laboratory Results 07/22/22 11:41 07/22/22 11:41 PG Care Time/CCT Total # of Minutes Spent Total Time Spent with Patient: Total time spent is greater than 50% in coordination of care (as documented) at patient's floor/unit and/or counseling patient: Coding Level of Care Code 04883 INT INP/OBS CARE 3/75MIN Diagnoses Acute respiratory failure with hypoxia J96.01 Tobacco abuse Z72.0 COPD (chronic obstructive pulmonary disease) J44.9 Multifocal pneumonia J18.9 Bronchiectasis J47.9
[2022-07-22] MEDS: SODIUM CHLOR 7% 4 ML NEB NEB SCH (19:15)
[2022-07-22] MEDS: FORMOTEROL 20 MCG/2 ML VIAL INH SCH (19:15)
[2022-07-22] MEDS: ALBUT/IPRATROP 3MG/0.5MG NEB 3 ML VIAL NEB SCH ×2 (19:16→23:25)
[2022-07-22] MEDS: NICOTINE 21 MG/24 HR TDSY TD SCH (19:39)
[2022-07-22] MEDS: guaiFENesin 600 MG TABCR PO SCH (19:44)
[2022-07-22] MEDS: ENOXAPARIN INJ 40 MG/0.4 ML SYR SQ SCH (22:34)
[2022-07-22] MEDS: methylPREDNISolone 40 MG in SYRINGE 0 ML IV SCH (22:35)
[2022-07-23] MEDS: ALBUT/IPRATROP 3MG/0.5MG NEB 3 ML VIAL NEB SCH ×5 (01:54→20:13)
[2022-07-23] MEDS: PIPERACILLIN/TAZOBACTAM 4.5 GM in DEXTROSE 5% 100 ML IV SCH ×3 (02:41→17:52)
[2022-07-23 04:09] LABS: Albumin Globulin Ratio 1.1 (0.9-2); Albumin Level 3.5 gm/dl (3.4-5.0); Bilirubin,Total 0.5 mg/dl (0.2-1.0); Calcium 8.4 mg/dl (8.6-10.3); Creatinine Clr Calc Pharmacy 94.5 ml/min; Est GFR (African American) 96.6 ml/min; Est GFR (Non-African American) 83.3 ml/min; Globulin 3.3 gm/dl (2.5-4.0); Immunoglobulin A 205.4 mg/dl (70-400); Immunoglobulin G 1304.9 mg/dl (635-1741); Immunoglobulin M 128.2 mg/dl (45-281); Magnesium 1.8 mg/dl (1.7-2.4); Potassium 4.3 mmol/L (3.5-5.1); Total Protein 6.8 gm/dl (6.0-8.3); Troponin I High Sensitivity 10.8 pg/ml (0-14)
[2022-07-23 04:10] LABS: Basophils # (auto) 0.01 K/uL (0-0.2); Basophils % (auto) 0.1 %; Eosinophils # (auto) 0.01 K/uL (0-0.50); Eosinophils % (auto) 0.1 %; Hematocrit (blood only) 45.2 % (37.0-47.0); Hemoglobin 14.8 g/dl (12.0-16.0); Immature Granulocytes # (auto) 0.04 K/uL (0.01-0.20); Immature Granulocytes % (auto) 0.6 %; Lymphocytes # (auto) 0.68 K/uL (1.2-3.4); Mean Corpuscular Hemoglobin 28.7 pg (25.0-34.0); Mean Corpuscular Hgb Conc 32.7 g/dL (32.0-36.0); Mean Corpuscular Volume 87.6 fL (80.0-100.0); Mean Platelet Volume 12.1 fL (9.4-12.4); Monocytes # (auto) 0.06 K/uL (0.11-0.59); Monocytes % (auto) 0.9 %; Neutrophils # (auto) 5.97 K/uL (1.40-6.50); Neutrophils % (auto) 88.3 %; Platelet Count 211 K/uL (130-400); RDW Coefficient of Variation 13.7 % (11.5-14.5); RDW Standard Deviation 43.9 fL (36.4-46.3); Red Blood Count 5.16 M/uL (4.20-5.40); White Blood Count 6.77 K/ul (4.8-10.8)
[2022-07-23] MEDS: methylPREDNISolone 40 MG in SYRINGE 0 ML IV SCH ×3 (06:07→22:26)
[2022-07-23] MEDS: DOXYCYCLINE HYCLATE 100 MG CAP PO SCH ×2 (06:07→21:12)
[2022-07-23 07:28] LABS: Estimated Average Glucose 120 mg/dl; Hemoglobin A1C 5.8 % (4.5-5.6)
[2022-07-23] MEDS: FORMOTEROL 20 MCG/2 ML VIAL INH SCH ×3 (07:46→20:13)
[2022-07-23] MEDS: SODIUM CHLOR 7% 4 ML NEB NEB SCH ×2 (07:46→20:13)
--- NOTE | 2022-07-23 08:31 | Pulmonology Progress Note ---
Date of Service July 23, 2022 Assessment & Plan (1) Acute respiratory failure with hypoxia: (2) Tobacco abuse: (3) COPD (chronic obstructive pulmonary disease): (4) Multifocal pneumonia: (5) Bronchiectasis: Plan CT chest 07/22/2022 personally reviewed: Patchy groundglass opacities appreciated bilaterally upper and lower lobes Diffuse mosaicism appreciated Bronchiectasis of the left lower lobe Minimal mediastinal lymphadenopathy para-aortic --Acute hypoxic respiratory failure Secondary to multifocal pneumonia COVID-19 PCR, influenza A/B, RSV negative Procalcitonin 0.09 Absolute eosinophil count 80 on 07/22/2022, have been as high as 190 on 07/18/2021 --Bronchiectasis Left lower lobe Etiology is not clear, could be idiopathic versus recurrent infection in the past Immunoglobulins within normal limit -- COPD Not on any inhalers at home Would recommend Trelegy or BrezTri to be used on discharge --Active smoker Greater than 96-[id number]-[id number] smoking history Importance of quitting explained to the patient in depth --Hypersomnia Recommend outpatient polysomnography Plan: Continue with hypertonic saline, Mucinex, Brovana and Incruse Immunoglobulins are within normal limit Follow-up procalcitonin Continue with antibiotic Please note the above document was generated using voice recognition software. It may contain grammatical, syntax or spelling errors.Any formal questions or concerns about the content, text or information contained within the body of this dictation should be directly addressed to the provider for clarification. Admission and Anticipated Discharge Date Admission Date: July 22, 2022 Subjective Patient seen and examined at bedside. No acute distress, no adverse events overnight She was saturating 92% on 3 L nasal cannula but I went down to 2 L. Patient did complain of diarrhea prior to coming to the hospital but no more diarrhea right now. Review of Systems 2 Review of Systems: All systems reviewed & are unremarkable except as noted in Subjective Physical Exam Physical Exam: Constitutional: No acute distress HEENT: EOMI, PERRLA Respiratory system:Decreased air entry bilaterally, no rhonchi, positive expiratory wheeze bilaterally, mild crackles bilateral lower lobes more on the left side CVS: S1-S2 positive, no murmurs or gallops Abdomen: Soft, nontender, nondistended, positive bowel sounds x4,obese Extremities: +2 pulses bilaterally radialis/ dorsalis pedis,no cyanosis, no edema Neuro: Awake alert oriented x3 Psych: Normal mood and affect G/U: No Mercedes Skin: no rashes, warm and dry Lymphatic: no cervical or axillary lymphadenopathy Results & Data Results & Data Vital Signs (Past 12 Hours) Vital Signs Temp Pulse Pulse Resp BP Pulse Ox O2 Del Method 07/23/22 08:03 36.5 C 67 16 137/75 93 Nasal Cannula 07/23/22 00:00 73 07/23/22 03:10 37.1 C 65 18 152/78 H 92 Nasal Cannula 07/23/22 02:42 36.7 C 60 18 165/90 H 90 Nasal Cannula 07/22/22 23:21 36.6 C 67 18 136/74 90 Nasal Cannula O2 Flow Rate 07/23/22 08:03 3 07/23/22 00:00 07/23/22 03:10 3 07/23/22 02:42 3 07/22/22 23:21 2 Laboratory Results 07/23/22 03:22 07/23/22 03:22 PG Care Time/CCT Total # of Minutes Spent Total Time Spent with Patient: Total time spent is greater than 50% in coordination of care (as documented) at patient's floor/unit and/or counseling patient: Coding Level of Care Code 06579 SUB INP/OBS CARE 3/50MIN Diagnoses Acute respiratory failure with hypoxia J96.01 Tobacco abuse Z72.0 COPD (chronic obstructive pulmonary disease) J44.9 Multifocal pneumonia J18.9 Bronchiectasis J47.9
[2022-07-23] MEDS: NICOTINE 21 MG/24 HR TDSY TD SCH (08:39)
[2022-07-23] MEDS: SACCHAROMYCES BOULARDII 250 MG CAP PO SCH (08:40)
[2022-07-23] MEDS: ESCITALOPRAM OXALATE 10 MG TAB PO SCH (08:40)
[2022-07-23] MEDS: amLODIPine BESYLATE 5 MG TAB PO SCH (08:40)
[2022-07-23] MEDS: guaiFENesin 600 MG TABCR PO SCH ×2 (08:41→21:12)
[2022-07-23] MEDS: UMECLIDINIUM BROMIDE 62.5MCG/BLISTER 7 PUFFS/INHALER INH SCH (11:33)
--- NOTE | 2022-07-23 17:29 | Hospitalist Progress Note ---
Date of Service July 23, 2022 Assessment & Plan (1) Acute respiratory failure with hypoxia: (2) Multifocal pneumonia: (3) COPD exacerbation: (4) Hypertension: (5) Tobacco abuse: (6) Bronchiectasis: (7) Depression with anxiety: (8) Morbid obesity: Plan This is a 62-year-old female with significant past medical history of COPD, HTN, tobacco abuse, depression who presents to ED due to shortness breath and cough after an aspiration event one week ago. Acute hypoxic respiratory failure COPD exacerbation Multifocal pneumonia Bronchiectasis per CT Tobacco abuse CT chest:Patchy groundglass consolidation is seen throughout both lungs, likely representing an infectious/inflammatory pneumonitis. Additionally, there is mild lower lobe bronchiectasis with mucous plugging/impaction on the left. Similar findings were seen on the 07/18/[address] scan. This may represent an acute on chronic or possibly atypical infectious process. Follow-up with pulmonology is recommended. Continues to require small amount of oxygen. Improved on Zosyn and doxycycline Continues on Solu-Medrol 40 mg IV every 8 Continues on pulmonary toilet with nebulizer spirometry and flutter valve Smoking cessation encouraged with NicoDerm in place. Per pulmonary recommendations we will continue work-up for elevated eosinophil count. Immunoglobulins are noted to be within normal limits. Trelegy will be started on discharge for COPD Outpatient PSG recommended She continues on nebulized hypertonic saline. Continue this treatment as ordered. Demand ischemia likely demand in setting of hypoxia and resp illness no CP, ekg w/o ischemic change echo without wall motion abnormalities. HTN pt on amlodipine as OP bp elevated slightly possibly related to nicotine use and steroids. Cont to monitor. DVT ppx: SQ Lovenox Full Code PCP: Andrés Dispo: Pt states she is retuning home tomorrow. I spent a total [id number] coordinating, documenting, and providing care for this patient excluding time spent in the performance of separately billed services DO [facility] Hospitalist Admission and Anticipated Discharge Date Admission Date: July 22, 2022 Subjective 62-year-old smoker presented to the hospital with worsening shortness of breath, admitted for multifocal pneumonia with bronchiectasis and underlying COPD. She is improved today. She reports doing well and is still oxygenating 91% on 2 L/min nasal cannula. She is not on oxygen supplementation at home. She is committed to quitting smoking and will use NicoDerm patches. She is otherwise denying pain, reports no fever and is doing well overall. Review of Systems Review of Systems: All systems reviewed negative such as indicated above. Physical Exam Physical Exam: CONSTITUTIONAL: obese, vitals as above, generally well-appearing, NAD EYES: normal conjunctivae, no scleral icterus ENT: external ear and nose normal, MMM NECK: trachea midline RESPIRATORY: intermittent rales/wheezing heard throughout all lung mascorro normal respiratory effort CARDIOVASCULAR: regular rate and rhythm, S1 and 2 heard without murmurs, gallops or rubs, no JVD, no peripheral edema, CHEST: inspection of chest was normal GASTROINTESTINAL: soft, nontender, ND, no guarding MUSCULOSKELETAL: strength 5/5 throughout, head is normocephalic and atraumatic SKIN: warm and dry NEUROLOGIC: CN 2-12 grossly intact, no sensory deficit, normal cognition, normal speech, no tremor PSYCHIATRIC: alert cooperative and oriented to person, place and time. Euthymic mood, makes good eye contact, language grossly intact, recent and remote memory grossly intact. Results & Data Results & Data Vital Signs (Past 12 Hours) Vital Signs Temp Pulse Pulse Resp BP Pulse Ox Pulse Ox 07/23/22 17:10 37.5 C 69 22 158/66 H 91 07/23/22 15:21 76 18 91 07/23/22 14:19 72 07/23/22 12:23 36.6 C 66 15 161/82 H 91 07/23/22 10:51 76 18 91 07/23/22 08:00 07/23/22 08:00 93 07/23/22 06:01 56 L 07/23/22 08:03 36.5 C 67 16 137/75 93 O2 Del Method O2 Del Method O2 Flow Rate O2 Flow Rate 07/23/22 17:10 Nasal Cannula 2 07/23/22 15:21 Nasal Cannula 3 07/23/22 14:19 07/23/22 12:23 Nasal Cannula 2.5 07/23/22 10:51 Nasal Cannula 3 07/23/22 08:00 Nasal Cannula 3 07/23/22 08:00 Nasal Cannula 2 07/23/22 06:01 07/23/22 08:03 Nasal Cannula 3 Laboratory Results Short CBC 07/23/22 Range/Units 03:22 WBC 6.77 (4.8-10.8) K/ul Hgb 14.8 (12.0-16.0) g/dl Hct 45.2 (37.0-47.0) % Plt Count 211 (130-400) K/uL BMP 07/23/22 03:22 Sodium 137 Potassium 4.3 D Chloride 101 Carbon Dioxide 29 BUN 10 Creatinine 0.77 Glucose 147 H Calcium 8.4 L Liver Function 07/23/22 Range/Units 03:22 Total Bilirubin 0.5 (0.2-1.0) mg/dl AST 13 (13-39) U/L ALT 17 (7-52) U/L Alkaline Phosphatase 79 (34-104) U/L Albumin 3.5 (3.4-5.0) gm/dl Medications Administered Current Inpatient Medications Acetaminophen (Acetaminophen 325 Mg Tab) 650 mg PO Q4H PRN PRN Reason: Pain or Fever Stop: 08/21/22 17:21 Al Hydrox/Mg Hydrox/Simethicone (Aluminum/Magnesium Susp 30 Ml Udc) 15 ml PO Q4H PRN PRN Reason: Dyspepsia Stop: 08/21/22 17:21 Albuterol (Albut/Ipratrop 3mg/0.5mg Neb 3 Ml Vial) 3 ml NEB Q4R JUAN; Protocol Stop: 08/21/22 18:59 Last Admin: 07/23/22 15:21 Dose: 3 ml Amlodipine Besylate (Amlodipine Besylate 5 Mg Tab) [facility] [place]: 08/22/22 08:59 Last Admin: 07/23/22 08:40 Dose: 5 mg Doxycycline Hyclate (Doxycycline Hyclate 100 Mg Cap) 100 mg PO BID [facility] Stop: 07/30/22 05:59 Last Admin: 07/23/22 06:07 Dose: 100 mg Enoxaparin Sodium (Enoxaparin Inj 40 Mg/0.4 Ml Syr) 40 mg SQ Q24H [facility] Stop: 08/21/22 21:59 Last Admin: 07/22/22 22:34 Dose: 40 mg Escitalopram Oxalate (Escitalopram Oxalate 10 Mg Tab) 10 mg PO QAM [facility] Stop: 08/22/22 08:59 Last Admin: 07/23/22 08:40 Dose: 10 mg Formoterol Fumarate (Formoterol 20 Mcg/2 Ml Vial) 20 mcg INH BIDR [facility] Stop: 08/21/22 18:59 Last Admin: 07/23/22 10:50 Dose: 20 mcg Guaifenesin (Guaifenesin 600 Mg Tabcr) 600 mg PO Q12 JUAN Stop: 08/21/22 20:59 Last Admin: 07/23/22 08:41 Dose: 600 mg Piperacillin Sod/Tazobactam (Sod 4.5 gm/ Dextrose) 120 mls @ 30 mls/hr IV Q8H [facility]; Protocol Stop: 07/30/22 01:59 Last Infusion: 07/23/22 13:56 Dose: Infused Methylprednisolone 40 mg/ (Syringe) 0.64 mls @ 1.5 mls/min IV Q8H [facility] Stop: 08/21/22 21:59 Last Admin: 07/23/22 13:57 Dose: 1.5 mls/min Magnesium Hydroxide (Magnesium Hydroxide Susp 30 Ml Udc) 30 ml PO Q12H PRN PRN Reason: Constipation Stop: 08/21/22 17:21 Miscellaneous (Remove Nicoderm Patch) 1 each N/A DAILY@0859 [facility] Stop: 08/22/22 08:58 Last Admin: 07/23/22 09:16 Dose: 1 each Nicotine (Nicotine 21 Mg/24 Hr Tdsy) 21 mg TD QAM [facility] Stop: 08/21/22 18:29 Last Admin: 07/23/22 08:39 Dose: 21 mg Ondansetron HCl (Ondansetron Inj 2 Mg/Ml 2 Ml Vial) 4 mg IV Q6H PRN PRN Reason: Nausea Stop: 08/21/22 17:21 Polyethylene Glycol (Polyethylene (Miralax) 17 Gm Pack) 17 gm PO DAILY PRN PRN Reason: Constipation Stop: 08/21/22 17:21 Saccharomyces Boulardii (Saccharomyces Boulardii 250 Mg Cap) 250 mg PO DAILY [facility] Stop: 08/22/22 08:59 Last Admin: 07/23/22 08:40 Dose: 250 mg Sodium Chloride (Sodium Chlor 7% 4 Ml Neb) 4 ml NEB BIDR [facility] Stop: 08/21/22 18:59 Last Admin: 07/23/22 07:46 Dose: Not Given Umeclidinium [place] (Umeclidinium [place] 62.5mcg/Blister 7 Puffs/Inhaler) 1 puffs INH DAILY [facility] Stop: 08/22/22 10:59 Last Admin: 07/23/22 11:33 Dose: 1 puffs
--- NOTE | 2022-07-23 21:06 | Electrocardiogram Report ---
Test Reason : Blood Pressure : / mmHG Vent. Rate : 074 BPM Atrial Rate : 074 BPM P-R Int : 142 ms QRS Dur : 090 ms QT Int : 398 ms P-R-T Axes : 040 060 026 degrees QTc Int : 441 ms Normal sinus rhythm Normal ECG When compared with ECG of 16-JUL-2022 15:44, No significant change was found Confirmed by Gerald Blum ([id number]) on 07/23/2022 9:06:22 PM Referred By: Confirmed By:Gerald Blum
[2022-07-23] MEDS: ENOXAPARIN INJ 40 MG/0.4 ML SYR SQ SCH (22:26)
[2022-07-24] MEDS: PIPERACILLIN/TAZOBACTAM 4.5 GM in DEXTROSE 5% 100 ML IV SCH ×2 (01:48→10:59)
[2022-07-24] MEDS: methylPREDNISolone 40 MG in SYRINGE 0 ML IV SCH (06:35)
[2022-07-24] MEDS: FORMOTEROL 20 MCG/2 ML VIAL INH SCH (06:58)
[2022-07-24] MEDS: ALBUT/IPRATROP 3MG/0.5MG NEB 3 ML VIAL NEB SCH ×2 (06:58→10:59)
[2022-07-24] MEDS: SODIUM CHLOR 7% 4 ML NEB NEB SCH (06:58)
--- NOTE | 2022-07-24 08:59 | Pulmonology Progress Note ---
Date of Service July 24, 2022 Assessment & Plan (1) Acute respiratory failure with hypoxia: (2) Tobacco abuse: (3) COPD (chronic obstructive pulmonary disease): (4) Multifocal pneumonia: (5) Bronchiectasis: Plan CT chest 07/22/2022 personally reviewed: Patchy groundglass opacities appreciated bilaterally upper and lower lobes Diffuse mosaicism appreciated Bronchiectasis of the left lower lobe Minimal mediastinal lymphadenopathy para-aortic --Acute hypoxic respiratory failure Secondary to multifocal pneumonia COVID-19 PCR, influenza A/B, RSV negative Procalcitonin 0.09 Absolute eosinophil count 80 on 07/22/2022, have been as high as 190 on 07/18/2021 --Bronchiectasis Left lower lobe Etiology is not clear, could be idiopathic versus recurrent infection in the past Immunoglobulins within normal limit -- COPD Not on any inhalers at home Would recommend Anoro to be used on discharge --Active smoker Greater than [id number] smoking history Importance of quitting explained to the patient in depth --Hypersomnia Recommend outpatient polysomnography Plan: Continue with hypertonic saline, Mucinex, Brovana and Incruse Immunoglobulins are within normal limit Complete the course of antibiotics for total of 5-7 days Patient has been asking to go home. I did explain to her that being in the hospital will be helpful If she is going to be discharged would recommend prednisone 40 mg for 3 days followed by 20 mg for 3 days followed by 10 mg for 3 days and then stop. Home regimen would include hypertonic saline nebulized, Mucinex and Anoro/Stiolto inhaler to be used on a daily basis. Evaluate for oxygen requirement on exertion prior to discharge Sleep study as an outpatient Patient should use flutter valve given at home Case discussed with nurse at bedside, Dr. Obrien Please note the above document was generated using voice recognition software. It may contain grammatical, syntax or spelling errors.Any formal questions or concerns about the content, text or information contained within the body of this dictation should be directly addressed to the provider for clarification. Admission and Anticipated Discharge Date Admission Date: July 22, 2022 Subjective Patient seen and examined at bedside. No acute distress, no adverse events overnight. Patient was saturating 92% on room air with heart rate of 64 She is asking to go home She is coughing bringing up clear phlegm denies any hemoptysis No headache, no blurry vision Fair appetite Review of Systems Review of Systems: All systems reviewed & are unremarkable except as noted in Subjective Physical Exam Physical Exam: Constitutional: No acute distress HEENT: EOMI, PERRLA Respiratory system:Decreased air entry bilaterally, no rhonchi, positive expiratory wheeze bilaterally, mild crackles bilateral lower lobes more on the left side CVS: S1-S2 positive, no murmurs or gallops Abdomen: Soft, nontender, nondistended, positive bowel sounds x4,obese Extremities: +2 pulses bilaterally radialis/ dorsalis pedis,no cyanosis, no edema Neuro: Awake alert oriented x3 Psych: Normal mood and affect G/U: No Mercedes Skin: no rashes, warm and dry Lymphatic: no cervical or axillary lymphadenopathy Results & Data Results & Data Vital Signs (Past 12 Hours) Vital Signs Temp Pulse Pulse Pulse Resp BP Pulse Ox 07/24/22 07:37 36.6 C 95 H 18 103/63 96 07/24/22 06:58 67 16 89 L 07/24/22 00:00 63 07/24/22 01:51 36.7 C 64 22 176/82 H 90 07/23/22 23:45 36.7 C 60 18 138/68 94 O2 Del Method O2 Flow Rate 07/24/22 07:37 Nebulizer 07/24/22 06:58 Room Air 07/24/22 00:00 07/24/22 01:51 Room Air 07/23/22 23:45 Nasal Cannula 2 Laboratory Results 07/23/22 03:22 07/23/22 03:22 PG Care Time/CCT Total # of Minutes Spent Total Time Spent with Patient: Total time spent is greater than 50% in coordination of care (as documented) at patient's floor/unit and/or counseling patient: Coding Level of Care Code 10717 SUB INP/OBS CARE 2/35MIN Diagnoses Acute respiratory failure with hypoxia J96.01 Tobacco abuse Z72.0 COPD (chronic obstructive pulmonary disease) J44.9 Multifocal pneumonia J18.9 Bronchiectasis J47.9
[2022-07-24] MEDS: guaiFENesin 600 MG TABCR PO SCH (09:17)
[2022-07-24] MEDS: DOXYCYCLINE HYCLATE 100 MG CAP PO SCH (09:18)
[2022-07-24] MEDS: ESCITALOPRAM OXALATE 10 MG TAB PO SCH (09:18)
[2022-07-24] MEDS: SACCHAROMYCES BOULARDII 250 MG CAP PO SCH (09:18)
[2022-07-24] MEDS: NICOTINE 21 MG/24 HR TDSY TD SCH (09:19)
[2022-07-24] MEDS: amLODIPine BESYLATE 5 MG TAB PO SCH (09:20)
[2022-07-24] MEDS: UMECLIDINIUM BROMIDE 62.5MCG/BLISTER 7 PUFFS/INHALER INH SCH (09:20)
--- NOTE | 2022-07-24 12:46 | Discharge Summary ---
Discharge Summary Date of Service July 24, 2022 Notes For Next Care Provider New dx COPD but will need outpatient PFTs once healed Please have her followup with [facility] in a few weeks Please consider outpatient PSG Please assist patient with weight loss efforts and smoking cessation Please consider repeat imaging in 4 weeks to ensure complete resolution of pneumonia. Medication Changes From Visit NEW umeclidium-vilanterol inhaler NEW Duoneb solution through nebulizer PRN NEW Albuterol inhaler PRN for rescue NEW Augmentin NEW doxycycline NEW Prednisone taper NEW Mucinex PRN Admission HPI Per Admitting Provider This is a 62-year-old female with significant past medical history of COPD, HTN, tobacco abuse, depression who presents to ED due to shortness breath and cough x1 week. Of significance patient was seen in ED on 07/16/2022 after sustaining a choking episode whenever she was drinking tea at a restaurant. She was seated at a bonds when she started coughing and choking on TV and had a witnessed syncopal episode at the table. She was only out for a few seconds prior to regaining consciousness. She came to ED for further evaluation and work-up was otherwise unremarkable. The next day on 07/17 she woke up feeling, "awful." She complained of productive cough with white sputum, feeling feverish, fatigued, rundown, short of breath with exertion and at rest and overall poor appetite. She has not had much to eat or drink since that event. She overall feels dehydrated. She was seen and evaluated in PCP office today when she was found to be hypoxic and sent over to ER for further evaluation. She does not have any inhalers at home. She has a known history of COPD but denies any prior history of COPD exacerbation, hospitalization or pneumonia. She denies any current trouble swallowing. She continues to smoke half a pack a day and has smoked for approximately 30 years. In ED patient was hypoxic requiring 3 L of supplemental oxygen. She was also hypertensive. Chest CTA was negative for PE but did reveal patchy groundglass consolidation throughout both lungs likely representing infectious and inflammatory pneumonitis. Additionally there is a mild lower lobe bronchiectasis with mucous plugging/impaction on the left which is similar in finding to the CT done on 07/18/2021. She does not see a produce specialist as outpatient. Principal Dx & Hospital Course #1 = Principal Diagnosis (1) Acute respiratory failure with hypoxia: (2) Multifocal pneumonia: (3) COPD exacerbation: (4) Hypertension: (5) Tobacco abuse: (6) Bronchiectasis: (7) Depression with anxiety: (8) Morbid obesity: Plan 62-year-old smoker presented with COPD exacerbation. She also reported a syncopal episode that was transient and then occurring at the time of aspiration 1 week prior to arrival. This was thought 2/2 post-tussive syncope provoked by cough. She was admitted to medicine and started on intravenous steroids, antibiotics and nebulized bronchodilators. Supplemental oxygen was needed. A CT scan of the chest revealed no evidence of PE with multifocal pneumonia/pneumonitis and mild lower lobe bronchiectasis with mucous plugging and impaction on the left. Similar findings were noted on CT scan from 1 week prior. An atypical infectious process was considered. She was started on IV Zosyn and doxycycline. Pulmonology was consulted and started her on nebulized hypertonic saline as well as Incruse Ellipta. Work-up included a negative PCR for COVID-19, influenza AMB and RSV. Procalcitonin was negative at 0.09. Absolute eosinophil count was noted to be 80 on 07/11 but had been as high as 190 on 07/18/2021. Etiology of bronchiectasis was not clear but may be idiopathic versus recurrent affection in the past. Immunoglobulins were checked and were within normal limits. At time of discharge Anoro was started. Smoking cessation encouraged with NicoDerm in place. Outpatient PSG recommended. Patient was adamant about leaving the hospital despite persistent wheezing on exam on day of discharge. A two-step test proved that she did not need supplemental oxygen going home. At time of discharge she was hemodynamically stable and afebrile and mentating and ambulating at baseline. She was sent home on oral Augmentin and doxycycline as well as a prednisone taper. Mucinex and nebulized bronchodilators were given as needed for symptom management. She was tolerating p.o. She was oxygenating well on room air. Close primary care follow-up was recommended. Discharge Exam CONSTITUTIONAL: obese, vitals as above, generally well-appearing, NAD EYES: normal conjunctivae, no scleral icterus ENT: external ear and nose normal, MMM NECK: trachea midline RESPIRATORY: intermittent rales/wheezing heard throughout all lung mascorro normal respiratory effort CARDIOVASCULAR: regular rate and rhythm, S1 and 2 heard without murmurs, gallops or rubs, no JVD, no peripheral edema, CHEST: inspection of chest was normal GASTROINTESTINAL: soft, nontender, ND, no guarding MUSCULOSKELETAL: strength 5/5 throughout, head is normocephalic and atraumatic SKIN: warm and dry NEUROLOGIC: CN 2-12 grossly intact, no sensory deficit, normal cognition, no rmal speech, no tremor PSYCHIATRIC: alert cooperative and oriented to person, place and time. Euthymic mood, makes good eye contact, language grossly intact, recent and remote memory grossly intact. Updated Medication List Medication Instructions Recorded Confirmed Type amlodipine 5 mg tablet 5 mg PO QAM 09/11/20 07/22/22 History escitalopram oxalate 10 mg tablet 10 mg PO QAM 07/22/22 07/22/22 History albuterol sulfate 90 mcg/actuation 2 inh inhalation Q6H PRN shortness 07/24/22 Rx aerosol inhaler (Ventolin HFA) of breath or wheezing #8.5 grams amoxicillin 875 mg-potassium 1 tab PO BID #14 tabs 07/24/22 Rx clavulanate 125 mg tablet doxycycline hyclate 100 mg capsule 100 mg PO BID #14 caps 07/24/22 Rx guaifenesin 600 mg tablet, 600 mg PO BID PRN cough #60 tabs 07/24/22 Rx extended release 12 hr (Mucinex) ipratropium 0.5 mg-albuterol 3 mg 3 ml inhalation Q6H PRN severe 07/24/22 Rx (2.5 mg base)/3 mL nebulization shortness of breath #90 mL soln nicotine 21 mg/24 hr daily 1 patch transdermal DAILY #14 ea 07/24/22 Rx transdermal patch (Nicoderm CQ) prednisone 10 mg tablet 10 mg PO DIRECTED #25 tabs 07/24/22 Rx umeclidinium 62.5 mcg-vilanterol 1 inh inhalation DAILY #60 ea 07/24/22 Rx 25 mcg/actuation powdr for inhalation Hospital Stay Data Consultations 07/22/22 16:32 ED Decision to Admit Stat 07/22/22 17:22 Consult Pulmonology Routine Diagnostic Imagining Performed 07/22/22 15:07 CT angio chest PE protocol Stat Pending Results Patient Have Any Pending Studies at Discharge: Yes Discharge Instructions Given to Patient (Per Discharging Provider) Please take all medications as instructed on discharge list below. You are being given a nebulizer machine and medicine to take in that nebulizer only when needed for rescue. Please don't use the Duoneb solution every day. You are being given a daily inhaler called daliavilanterol to take eery day no matter how you are feeling. This is a treatment for your underlying lung disease. Please continue mucinex as needed for cough/congestion, prednisone taper as instructed over the next week and one more week of doxycycline antibiotic. You will need to followup with pulmonology as an outpatient in the next few weeks to establish care and see how things are going since leaving the hospital. Please also make an appointment with your primary care provider within one week of dishcharge from the hospital. Smoking cessation is strongly advised. You are being prescribed Nicoderm patches, but may use other methods as needed to help you stay quit. Please consider a Sleep referral to undergo a sleep study. It was a pleasure taking care of you! Please call if you have any questions or problems. You can reach a [facility] hospitalist on duty at [facility] 24 hours a day by calling [phone]. Take care of yourself. Karyn Obrien, [facility] Hospitalist Total Time Total Time Spent Total Time Spent (In Minutes): 60
[2022-07-26 16:12] LABS: Alternaria Class 0; Alternaria IgE <0.10 kU/L; Ash (White) Class 0; Ash (White) IgE <0.10 kU/L; Asperg Fumig Class 0; Asperg Fumig IgE <0.10 kU/L; Bermuda Grass Class 0; Bermuda Grass IgE <0.10 kU/L; Birch Class 0; Birch IgE <0.10 kU/L; Cat Dander Class 0; Cat Dander IgE <0.10 kU/L; Cladosporium IgE <0.10 kU/L; Cladosporium her Class 0; Cockroach Allergen Class 0; Cockroach IgE Ab <0.10 kU/L; Cottonwood Class 0; Cottonwood IgE <0.10 kU/L; D. farinae Class 0; D. farinae IgE <0.10 kU/L; D. pteronyssinus Class 0; D. pteronyssinus IgE <0.10 kU/L; Dog Dander Class 0; Dog Dander IgE <0.10 kU/L; Elm Class 0; Elm IgE <0.10 kU/L; Immunoglobulin IgE 504 kU/L (<OR=114); Maple (Box Elder) IgE <0.10 kU/L; Maple Class 0; Mountain Cedar Class 0; Mountain Cedar IgE <0.10 kU/L; Mouse Urine Protein Class 0; Mouse Urine Protein IgE <0.10 kU/L; Mugwort (W6) IgE <0.10 kU/L; Mugwort Class 0; Oak-White Class 0; Oak-White IgE <0.10 kU/L; Penic Notatum Class 0; Penic Notatum IgE <0.10 kU/L; Rough Pigweed Class 0; Rough Pigweed IgE <0.10 kU/L; Sheep Sorrel Class 0; Sheep Sorrel IgE <0.10 kU/L; Short Ragweed Class 0; Short Ragweed IgE <0.10 kU/L; Sycamore Class 0; Sycamore IgE <0.10 kU/L; Timothy Class 0; Timothy IgE <0.10 kU/L; Walnut Tree Class 0; Walnut Tree IgE <0.10 kU/L; White Mulberry Class 0; White Mulberry IgE <0.10 kU/L
== END 2022-07-24 14:30 | disposition home or self-care (01) | DRG 190 ==
LOC: ED 11:24 → EDINP 16:50 → SUATTDRO 16:50 → 2S 17:23